=== PATIENT | female | born 1955 | race American Indian/Alaskan Native ===

== ENCOUNTER 2018-04-20 20:44 | Emergency (ER) | payer BC, OTHER ==
[2018-04-20 20:59] VITALS: BP 137/85
[2018-04-20] MEDS ORDERED: TORADOL IM ONE (22:09)
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
--- NOTE | 2018-04-20 23:27 | XRay Report ---
FINAL REPORT EXAM: XR SPINE LUMBOSACRAL 2-3V HISTORY: low back pain TECHNIQUE: Frontal and lateral views lumbar spine Comparison: None FINDINGS: There dextrocurvature of the lumbar spine. There is mild grade 1 anterolisthesis L4 on L5. The vertebral heights are maintained. There is loss of height of the L3-L4, L4-L5 and L5-S1 discs. There is degenerative facet change in the mid and lower lumbar spine. The paraspinous soft tissues are unremarkable. IMPRESSION: 1. Spondylitic change lumbar spine as described above. If further imaging is required and if there is no clinical contraindication, MRI may be helpful.
--- NOTE | 2018-04-20 23:30 | XRay Report ---
FINAL REPORT EXAM: XR SPINE CERVICAL 2-3V HISTORY: neck pain TECHNIQUE: Frontal, lateral, odontoid views cervical spine Comparison: None FINDINGS: Bony alignment is normal. The vertebral heights are maintained. There is loss of height of the C6-C7 disc with associated degenerative endplate change. The disc spaces are otherwise maintained. There is no plain film evidence of bony canal stenosis. The paraspinous soft tissues are unremarkable. IMPRESSION: 1. Evidence of degenerative disc and endplate change C6-C7 level. If further imaging is required, MRI may be helpful.
== END 2018-04-20 23:55 | disposition home or self-care (01) ==
LOC: ED 20:44
DX: S13.4XXA Sprain of ligaments of cervical spine, initial encounter (principal); S39.012A Strain of muscle, fascia and tendon of lower back, initial encounter; M50.30 Other cervical disc degeneration, unspecified cervical region; V49.49XA Driver injured in collision with other motor vehicles in traffic accident, initial encounter; Y93.89 Activity, other specified; Y92.89 Other specified places as the place of occurrence of the external cause; Y99.8 Other external cause status
CPT/HCPCS: 72040; 72100; 96372; 99283; J1885